=== PATIENT | female | born 1965 | race Hispanic/Latino ===

== ENCOUNTER 2023-06-26 08:29 | Day surgery (SDC) | payer OTHER ==
[2023-06-26 10:30] VITALS: BP 168/86; PULSE 75; RESP 16
[2023-06-26 11:08] LABS: BASOPHILS # (AUTO) 0.01 K/uL (0.00-0.20); BASOPHILS % (AUTO) 0.2 % (0.0-5.0); EOSINOPHILS % (AUTO) 2.1 % (0.0-8.0); HEMATOCRIT 21.7 % (36-48); IMMATURE GRANULOCYTE ABSOLUTE 0.02 K/uL (0-1); LYMPHOCYTES # (AUTO) 1.5 K/uL (1.0-4.8); LYMPHOCYTES % (AUTO) 32.4 % (21.0-51.0); MEAN CORPUSCULAR HEMOGLOBIN 29.8 pg (27.0-33.0); MEAN CORPUSCULAR HGB CONC 31.3 g/dL (32.0-36.0); MEAN CORPUSCULAR VOLUME 95.2 fL (79-99); MONOCYTES # (AUTO) 0.5 K/uL (0.1-1.0); MONOCYTES % (AUTO) 11.4 % (3.0-13.0); NEUTROPHILS # (AUTO) 2.5 K/uL (1.8-7.7); NEUTROPHILS % (AUTO) 53.5 % (40.0-77.0); PLATELET COUNT (AUTO) 376 K/uL (130-400); RED BLOOD CELL COUNT(AUTO) 2.28 MIL/uL (4.00-5.50); RED CELL DISTRIBUTION WIDTH 14.1 % (11.0-15.5); WHITE BLOOD COUNT (AUTO) 4.7 K/uL (4.8-10.8)
[2023-06-26 14:00] VITALS: BP 174/86; PULSE 74; RESP 16
[2023-06-26 14:58] LABS: HEMATOCRIT 25.3 % (36-48)
[2023-06-26 15:15] VITALS: BP 178/84; PULSE 76; RESP 16
== END 2023-06-26 15:00 | disposition home or self-care (01) ==
LOC: DAH 08:29
PROVIDERS: ATTEND Internal Medicine
DX: D64.9 Anemia, unspecified (principal); Z79.899 Other long term (current) drug therapy
CPT/HCPCS: 85018; 85014; 36430; 85025; 86850; 86900; 86901; 86923; 82948; 36415; A4223 ×3; P9016; A4215; A4222; A4221; A4663; A4216; J7030; A4606